=== PATIENT | male | born 1945 | race Caucasian/White ===

== ENCOUNTER 2023-03-15 21:04 | Emergency (ER) | payer MEDICARE, BC, SELFPAY ==
[2023-03-15 21:06] VITALS: BP 121/78
[2023-03-15 21:22] VITALS: BMI 34.5
[2023-03-15 21:24] VITALS: BP 135/63
--- NOTE | 2023-03-15 21:58 | ED.GENMED ---
History of Present Illness
<Enrrique Petersen DO - Last Filed: 03/16/23 06:43>
General
Chief Complaint: Weakness
Source: patient
Time Seen by Provider: 03/15/23 21:57
Travel History
Have you had any contact with someone who has COVID-19?: No
Do you have any symptoms of coronavirus? Fever > 100 degrees, chills, cough, shortness of breath, sore throat, loss of taste or smell, muscle aches, or headache?: No
<MARIANA Mayen - Last Filed: 03/16/23 00:27>
General
Exam Limitations: none
Nursing documentation reviewed up to this point in time: agreed with
History of Present Illness
History of Present Illness:
77 y/o M with past medical history of syncope, hypertension, HLD, heart stent in 2016 and RBBB presents to ED complaining of bilateral leg weakness x 4 hours. He reports the weakness came about suddenly while he was in his room after doing laundry.
He reports it is moderate in severity. He does report the weakness feels better now but reports it is still present. Patient has been nervous to walk due to fear of falling from leg weakness. He is also reporting associated lightheadedness and
numbness in feet that also began 4 hours ago. His reported he looked pale at home. He has not had leg weakness in the past but admits to feeling weak overall from his hospital stay. Patient was recently admitted to hospital for syncope. During
his stay, his blood pressure medication was adjusted to half a dose. He takes his blood pressure medication depending on his blood pressure readings. Patient also reports short after his hospital stay he had another episode of syncope that resulted
in him to urinate on himself. He denies weakness in his arms, headache, tingling, pain, speaking difficulty, memory loss, chest pain, diaphoresis, palpitations, or abdominal pain.
If applicable-neuro sx onset
Onset of symptoms known: Yes
Date of onset of symptoms: 03/15/23
Past History
<Enrrique Petersen DO - Last Filed: 03/16/23 06:43>
Past History
ED Past Medical History: HTN, Hypercholesterolemia and Other (Sleep apnea)
ED Past Surgical History: Cardiac
Social History
Tobacco: Non-smoker
Alcohol: None
Drug: None
Personal:
Living: with family
Review of Systems
<Enrrique Petersen DO - Last Filed: 03/16/23 06:43>
Review of Systems
Allergies reviewed?: Yes
<MARIANA Mayen - Last Filed: 03/16/23 00:27>
Review of Systems
All Other Systems: ROS reviewed and negative except as documented in HPI and ROS
Constitutional: Reports no symptoms
EENT: Reports no symptoms
Respiratory: Reports no symptoms
Cardiac: Reports syncope
ABD/GI: Reports no symptoms
: Reports incontinence
Musculoskeletal: Reports edema
Skin: Reports no symptoms
Neurological: Reports weakness and numbness
Endocrine: Reports no symptoms
Hematologic/Lymphatic: Reports no symptoms
Psychiatric: Reports no symptoms
<MARIANA Mayen - Last Filed: 03/16/23 00:27>
General Physical Exam
General Presentation: well appearing and no apparent distress
General age: appears stated age
General Skin: warm and pale
General Habitus: normal
General Mental: alert
General Hydration: appears well hydrated
ENT Exam
ENT Exam: EOMI and neck supple
Eye Exam
Eye Exam: PERRL, conjunctiva normal and visual acuity normal
Cardiovascular Exam
Cardiovascular Exam: regular rate/rhythm and other (2+ edema on BL legs)
Pulmonary Exam
Pulmonary Exam: lungs clear and no respiratory distress
Cough: no cough
Neurological Exam
Neurological Exam: alert, oriented x3, no motor deficits and speech normal
NIH Stroke Score
Level of Consciousness: 0 - Alert
Mental
Mental Status: oriented to person, oriented to place and oriented to time
Describe Speech: normal speech
Cranial
Cranial Nerves: no facial asymetry
Motor
Right lower extremity: 5
Left lower extremity: 5
Bilateral lower extremities: 5
Musculoskeletal Exam
Musculoskeletal Exam: edema, neuro vasc intact and other (5/5 strength in BL lower extremities and BL feet)
Skin Exam
Skin Exam: normal color and no rash
Course
<Enrrique Petersen, DO - Last Filed: 03/16/23 06:43>
Orders/Labs/Results
Orders:
Orders
03/15/23 23:26
Interrogate Pacemaker- Treatment ONCE
Comment: medtronic linq
03/15/23 23:29
EKG- Treatment ONCE
03/15/23 23:38
CRP [C-Reactive Protein] Urgent
Complete Blood Count/With Diff Urgent
Comprehensive Metabolic Panel Urgent
Lipase Urgent
NT-proBNP Urgent
PTT Urgent
Prothrombin Time Urgent
Sed Rate [Erythrocyte Sed Rate] Urgent
Troponin I Urgent
Urinalysis Reflex To Culture Urgent
Date Specimen was Collected: 03/15/23
Time Specimen was Collected: 22:59
03/16/23
Electrocardiogram (*1) Stat
Other Reason for Exam: VERTIGO
03/16/23 00:08
0.9% Sodium Chloride 500 ml [Nss] 500 ml IV BOLUS
03/16/23 00:39
Ambulate Patient-Treatment ONCE
Abnormal Lab Results
03/15/23
23:38
RBC 4.26 L 10^6/uL
(4.70-6.10)
Hgb 12.8 L g/dL
(13.0-18.0)
Hct 38.2 L %
(39.0-52.0)
Sodium 132 L mmol/L
(135-145)
BUN 22 H mg/dl
(9-20)
Glucose 101 H mg/dl
(70-99)
Total Protein 6.0 L g/dl
(6.3-8.2)
03/15/23 23:38
03/15/23 23:38
Vital Signs
Initial and Last Documented VS:
Initial Vital Signs
Temp Pulse Resp BP Pulse Ox
98.2 F 64 18 121/78 96
03/15/23 21:06 03/15/23 21:06 03/15/23 21:06 03/15/23 21:06 03/15/23 21:06
Last Documented Vital Signs
Temp Pulse Resp BP Pulse Ox
98.2 F 60 17 136/74 97
03/15/23 21:06 03/16/23 01:30 03/16/23 01:30 03/16/23 01:29 03/16/23 01:30
<MARIANA Mayen - Last Filed: 03/16/23 00:27>
Orders/Labs/Results
Orders:
Orders
03/15/23 23:26
Interrogate Pacemaker- Treatment ONCE
Comment: medtronic linq
03/15/23 23:29
EKG- Treatment ONCE
03/15/23 23:38
CRP [C-Reactive Protein] Urgent
Complete Blood Count/With Diff Urgent
Comprehensive Metabolic Panel Urgent
Lipase Urgent
NT-proBNP Urgent
PTT Urgent
Prothrombin Time Urgent
Sed Rate [Erythrocyte Sed Rate] Urgent
Troponin I Urgent
Urinalysis Reflex To Culture Urgent
Date Specimen was Collected: 03/15/23
Time Specimen was Collected: 22:59
03/16/23
Electrocardiogram (*1) Stat
Other Reason for Exam: VERTIGO
03/16/23 00:08
0.9% Sodium Chloride 500 ml [Nss] 500 ml IV BOLUS
03/16/23 00:39
Ambulate Patient-Treatment ONCE
Abnormal Lab Results
03/15/23
23:38
RBC 4.26 L 10^6/uL
(4.70-6.10)
Hgb 12.8 L g/dL
(13.0-18.0)
Hct 38.2 L %
(39.0-52.0)
Sodium 132 L mmol/L
(135-145)
BUN 22 H mg/dl
(9-20)
Glucose 101 H mg/dl
(70-99)
Total Protein 6.0 L g/dl
(6.3-8.2)
03/15/23 23:38
03/15/23 23:38
Vital Signs
Initial and Last Documented VS:
Initial Vital Signs
Temp Pulse Resp BP Pulse Ox
98.2 F 64 18 121/78 96
03/15/23 21:06 03/15/23 21:06 03/15/23 21:06 03/15/23 21:06 03/15/23 21:06
Last Documented Vital Signs
Temp Pulse Resp BP Pulse Ox
98.2 F 60 17 136/74 97
03/15/23 21:06 03/16/23 01:30 03/16/23 01:30 03/16/23 01:29 03/16/23 01:30
<Enrrique Petersen DO - Last Filed: 03/16/23 06:43>
*Critical Care Note
Total Time (30-74mins, 75-104mins- exclusive of procedures): Not Applicable
<Enrrique Petersen DO - Last Filed: 03/16/23 06:43>
Update Note
Update Note:
24:11 Patient well and stable. Vitals stable. No concerns reported
03/16/2023 0100 AM: Patient feeling better will ambulate.
03/16/2023 0146 AM: Linq recorder interrogated. It showed PVCs.
<ST TiarraPA - Last Filed: 03/16/23 00:27>
Update Note
Update Note:
24:11 Patient well and stable. Vitals stable. No concerns reported
ED Attending Note
<Enrrique Petersen DO - Last Filed: 03/16/23 06:43>
ED Attending Note
Patient seen and examined by attending physician: Yes
I performed the substantive portion of visit, reviewed & personally made and approve the management plan that is documented in note by myself or INOCENTE.: Yes
ED Attending Note:
Pleasant 77-year-old male presents with bilateral leg weakness for the last 4 hours. He states that this evening again on while standing doing laundry. He states that the pain lasted started to resolve. Patient was recently admitted to the "[facility] after syncopal event a few weeks ago and discharged. He states that he had a similar feeling of weakness at that point. He did report some lightheadedness tonight. Denies headache. Reports no chest pain or shortness of breath. Patient
states that his syncopal episode might have been due to to blood pressure medications. At his discharge, the medication dose was adjusted down. Patient was seen in conjunction with the PA student. I have reviewed and agree with the history and
treatment plan presented. On my independent physical exam, patient is awake, alert, and oriented x3, no acute distress. Heart is regular rate and rhythm. There is a Steri-Strip on his chest from where his Linq recorder was placed. Abdomen is
obese, nondistended. Bowel sounds x 4 quadrants. Good muscle strength in the lower extremities. Good distal pulses.
Vital signs are stable. Patient not hypoxic
Nursing note reviewed. I agree with nursing documentation up to this point in time.
Home Meds and allergies reviewed.
NUMBER AND COMPLEXITY OF PROBLEMS ADDRESSED AT THE ENCOUNTER
� Chronic conditions affecting care: Syncope, hypertension, hyperlipidemia, right bundle branch block, CAD
� Acute Exacerbation and/or Progression of Chronic Illness:
� Differential Diagnosis includes: Electrolyte abnormality, fatigue, cardiac event
AMOUNT AND/OR COMPLEXITY OF DATA TO BE REVIEWED AND ANALYZED
I performed an independent evaluation of the following and my interpretation is:
EKG:
CT:
X-rays:
Ultrasound:
Laboratory Studies:
Other:
Review of other/old records: Echocardiogram ejection fraction 60 to 65%, aortic sclerosis without stenosis.
Clinical information was obtained by an independent historian:
Prescriptions/Medications Considered but not given:
Further testing considered but not performed:
RISK OF COMPLICATIONS AND/OR MORBIDITY OR MORTALITY OF PATIENT MANAGEMENT
Social determinants of health affecting care: Good Social Support
Discussion with other providers:
Escalation of care including admission/observation vs risk of discharge considered:
CRITICAL CARE NOTE:
Total Time (exclusive of procedures):
Update:
-
Portions of this chart may have been created with voice recognition software.� Occasional wrong word or��sound alike� substitutions may have occurred due to the inherent limitations of voice recognition software.
Discharge Plan
Departure
Patient Disposition: Home (Routine Discharge)
Date of Disposition: 03/16/23
Time of Disposition: 01:12
Patient with high blood pressure during this ER visit?: Yes
Condition: Good
Discharge Problem:
Generalized weakness
Instructions: Generalized Weakness (DC), BLOOD PRESSURE
Prescriptions:
No Action
enalapril maleate 10 MG tablet
10 mg PO BID
terazosin 1 MG capsule
1 mg PO HS
aspirin 81 MG tablet,delayed release (DR/EC)
81 mg PO DAILY
calcium polycarbophil [Fiber-Tabs] 625 MG tablet
625 mg PO DAILY
ezetimibe 10 MG tablet
10 mg PO DAILY
rosuvastatin 5 mg Tablet
5 mg PO DAILY
hydrochlorothiazide 12.5 mg Tablet
12.5 mg PO DAILY
Centrum Silver Men [id number] mcg Tablet
1 tab PO DAILY
Referrals:
Raya Hahn MD [Family Provider] -
Activity Restrictions/Additional Instructions:
It was a pleasure meeting you and taking part in your care. We hope for your continued healing and wellness.
Please read discharge instructions in their entirety. However, they are for general education and may not describe your exact diagnosis at discharge. Information on your ER visit and medical conditions were discussed with you along with appropriate
follow up information...
If indicated, please take your medications as instructed and indicated on discharge paperwork.
Please schedule a follow up appointment as directed. Call to schedule an appointment
Please return to the emergency department with ANY change in, persisting, or worsening of symptoms. If any of your symptoms do not improve, or persist, or become more severe within 6-12 hours, please return to the emergency department for further
care.
Please return to the emergency department if you develop a headache, neck pain/stiffness, fever greater than 100.4F, chest pain, shortness of breath, persistent nausea, vomiting, slurred speech, difficulty walking, numbness/tingling, weakness, signs
of infection or any other symptoms that are worrisome to you.
If you have any questions or concerns please do not hesitate to call the Hospital at or E-mail me directly at [email or web address]
Interventions
Interventions:
*Risk Screen - Suicide Last Done: 03/15/23 21:06
*General Assessment Last Done: 03/15/23 21:06
*Neglect/Abuse Screening Last Done: 03/15/23 21:06
ED- Fall Risk Assessment Last Done: 03/15/23 21:06
*ED COVID-19 Vaccine History Last Done: 03/15/23 21:06
*Nursing Disposition Last Done: 03/16/23 01:40
ED- Cardiac Assessment Last Done: 03/15/23 23:43
ED- Neurological Assessment Last Done: 03/15/23 23:43
ED- Pulmonary Assessment Last Done: 03/15/23 23:43
Discharge Date and Time
Discharge Date/Time: 03/16/23 01:40
[2023-03-15 22:00] VITALS: BP 114/60
[2023-03-15 23:00] VITALS: BP 143/69
[2023-03-15 23:51] LABS: % Basophils 0.7 % (0-2); % Eosinophils 1.9 % (0-6); % Immature Granulocytes 0.4 % (0-0.5); % Lymphocytes 26.2 % (20.5-51.1); % Monocytes 7.3 % (1.7-9.3); % Neutrophils 63.5 % (42.2-75.2); Absolute Basophils 0.1 10^3/uL (0-0.2); Absolute Eosinophils 0.1 10^3/uL (0-0.7); Absolute Lymphocytes 1.9 10^3/uL (1.2-3.4); Absolute Monocytes 0.5 10^3/uL (0.1-0.6); Absolute Neutrophils 4.6 10^3/uL (1.4-6.5); Hematocrit 38.2 % (39.0-52.0); Hemoglobin 12.8 g/dL (13.0-18.0); Mean Corp Hgb Conc. 33.5 g/dL (33.0-37.0); Mean Corpuscular Volume 89.7 fL (80.0-94.0); Mean Platelet Volume 10.2 fL (7.4-10.4); Nucleated Red Blood Cells % 0 % (-); Platelet Count 250 10^3/uL (130-400); Red Blood Cell Count 4.26 10^6/uL (4.70-6.10); Red Cell Dist. Width 12.3 % (11.5-14.5); White Blood Cell Count 7.2 10^3/uL (4.8-10.8)
[2023-03-15 23:55] LABS: INR 1.11; PT 14.1 Sec (11.4-14.6)
[2023-03-15 23:56] LABS: APTT 29.4 Sec (23.4-35.0)
[2023-03-16] VITALS: BP 137/101
[2023-03-16] LABS: Urine Albumin Negative (Neg - Trace); Urine Bilirubin Negative (Negative); Urine Character Clear (Clear); Urine Color Yellow; Urine Glucose Negative (Negative); Urine Ketone Negative (Negative); Urine Leukocyte Negative (Negative); Urine Nitrite Negative (Negative); Urine Occult Blood Negative (Negative); Urine Specific Gravity 1.015 (<1.030); Urine Urobilinogen Negative (Neg - 1+)
[2023-03-16 00:02] LABS: ALT (SGPT) 17 U/L (0-50); AST (SGOT) 24 U/L (17-59); Albumin 3.9 g/dl (3.5-5.0); Alkaline Phosphatase 68 U/L (38-126); Blood Urea Nitrogen 22 mg/dl (9-20); Calcium 9.1 mg/dl (8.4-10.2); Carbon Dioxide 26 mmol/L (22-30); Chloride 102 mmol/L (98-107); Estimated Creatinine Clearance 80 ml/min; Glucose 101 mg/dl (70-99); Lipase 148 U/L (23-300); Potassium 4.3 mmol/L (3.5-5.1); Sodium 132 mmol/L (135-145); Total Bilirubin 0.5 mg/dl (0.2-1.3); eGFR > 60.00
[2023-03-16 00:11] LABS: C-Reactive Protein < 5.00 mg/L (0.0-10.00)
[2023-03-16 00:14] LABS: Erythrocyte Sed Rate 10 mm/hour (0-20); NT-proBNP 22.4 pg/ml; Troponin I < 0.012 ng/ml
[2023-03-16] MEDS: NSS 500 IV (00:15)
[2023-03-16 01:00] VITALS: BP 107/60
[2023-03-16 01:29] VITALS: BP 136/74
== END 2023-03-16 01:40 | disposition home or self-care (01) ==
LOC: EMR 21:04
PROVIDERS: EMERGENCY PHYSICIAN Student in an Organized Health Care Education/Training Program; FAMILY PHYSICIAN Emergency Medicine
DX: R53.1 Weakness (principal); I10 Essential (primary) hypertension; E78.00 Pure hypercholesterolemia, unspecified; I45.10 Unspecified right bundle-branch block; G47.30 Sleep apnea, unspecified; Z95.5 Presence of coronary angioplasty implant and graft
CPT/HCPCS: 99283; 96360; 80053; 81003; 83690; 83880; 84484; 85025; 85610; 85652; 85730; 86140; 93005

== ENCOUNTER → 2023-04-04 10:38 | Outpatient (REF) | payer MEDICARE, BC, SELFPAY ==
[2023-04-04 15:42] LABS: Blood Urea Nitrogen 22 mg/dl (9-20); Calcium 9.6 mg/dl (8.4-10.2); Carbon Dioxide 29 mmol/L (22-30); Chloride 104 mmol/L (98-107); Glucose 114 mg/dl (70-99); Potassium 4.2 mmol/L (3.5-5.1); Sodium 138 mmol/L (135-145); eGFR > 60.00
== END ==
LOC: HWLAB 10:38
PROVIDERS: ATTENDING PHYSICIAN Emergency Medicine
DX: E87.1 Hypo-osmolality and hyponatremia (principal)
CPT/HCPCS: 36415; 80048

== ENCOUNTER → 2023-04-12 11:29 | Outpatient (REF) | payer MEDICARE, BC, SELFPAY | LOC: DHCBC/DCA 11:29 | PROVIDERS: ATTENDING PHYSICIAN Nurse Practitioner; FAMILY PHYSICIAN Emergency Medicine | DX: R06.09 Other forms of dyspnea (principal) | CPT/HCPCS: 78452; 93017; A9500; J2785 ==

== ENCOUNTER → 2023-04-20 09:12 | Outpatient (REF) | payer MEDICARE, BC, SELFPAY ==
[2023-04-20 12:56] LABS: % Basophils 0.8 % (0-2); % Eosinophils 2.9 % (0-6); % Immature Granulocytes 0.2 % (0-0.5); % Lymphocytes 34.5 % (20.5-51.1); % Monocytes 7.5 % (1.7-9.3); % Neutrophils 54.1 % (42.2-75.2); Absolute Eosinophils 0.1 10^3/uL (0-0.7); Absolute Lymphocytes 1.7 10^3/uL (1.2-3.4); Absolute Monocytes 0.4 10^3/uL (0.1-0.6); Absolute Neutrophils 2.6 10^3/uL (1.4-6.5); Hematocrit 41.7 % (39.0-52.0); Hemoglobin 13.6 g/dL (13.0-18.0); Mean Corp Hgb Conc. 32.6 g/dL (33.0-37.0); Mean Corpuscular Hgb 29.6 pg (27.0-31.0); Mean Corpuscular Volume 90.7 fL (80.0-94.0); Mean Platelet Volume 11.1 fL (7.4-10.4); Nucleated Red Blood Cells % 0 % (-); Platelet Count 226 10^3/uL (130-400); Red Cell Dist. Width 12.4 % (11.5-14.5); White Blood Cell Count 4.8 10^3/uL (4.8-10.8)
[2023-04-20 13:03] LABS: ALT (SGPT) 22 U/L (0-50); AST (SGOT) 25 U/L (17-59); Albumin 4.1 g/dl (3.5-5.0); Alkaline Phosphatase 57 U/L (38-126); Blood Urea Nitrogen 28 mg/dl (9-20); Calcium 9.6 mg/dl (8.4-10.2); Carbon Dioxide 29 mmol/L (22-30); Chloride 100 mmol/L (98-107); Glucose 107 mg/dl (70-99); HDL Cholesterol 40 mg/dl; LDL Cholesterol, Calculated 53 mg/dl; Potassium 4.5 mmol/L (3.5-5.1); Sodium 138 mmol/L (135-145); Total Bilirubin 0.4 mg/dl (0.2-1.3); Total Cholesterol 115 mg/dl (50-199); Total Protein 6.3 g/dl (6.3-8.2); Triglyceride 111 mg/dl (10-149); Very Low Density Lipoprotein 22 mg/dl (0-30); eGFR > 60.00
== END ==
LOC: HWLAB 09:12
PROVIDERS: ATTENDING PHYSICIAN Emergency Medicine
DX: I10 Essential (primary) hypertension (principal); E78.2 Mixed hyperlipidemia; G47.33 Obstructive sleep apnea (adult) (pediatric); R73.03 Prediabetes
CPT/HCPCS: 36415; 80053; 80061; 83036; 85025

== ENCOUNTER 2023-05-17 06:04 | Day surgery (SDC) | payer MEDICARE, BC, SELFPAY ==
[2023-05-17] VITALS (13 sets, daily range): BP systolic 112–147; BP diastolic 56–75; BMI 34.0
[2023-05-17] MEDS: NSS 361 ML IV (07:03)
--- NOTE | 2023-05-17 08:18 | ITS.CL.CATH ---
Designer Writer - Catheterization
Cardiac Catheterization
Procedure Report:
CARDIAC CATHETERIZATION REPORT
Date of Procedure: 05/17/2023
Referring: Francisco Sheriff MD
Indication: Exertional dyspnea with ischemic stress test and prior history LAD PCI
HEMODYNAMIC DATA
AO: 124/64
LV: 124/17
LEFT VENTRICULOGRAPHY: Normal left ventricular wall motion with EF 54%
CORONARY ANGIOGRAPHY
Dominance: Right
Left Main: Normal
LAD: Widely patent proximal LAD stent with no restenosis. There is mild calcification of the mid LAD with only mild luminal irregularities in the LAD system
Circumflex: Trivial luminal irregularities
RCA: Large dominant vessel with mild luminal irregularities. The acute marginal branch becomes the PDA and has 30% ostial stenosis and diffuse distal disease
Closure Device: None-the procedure was performed via the right radial artery. The Kostas's test was normal prior to the procedure.
Radiation (mGy): 545
DAP (cm2.Gy): 46.8
Fluoroscopy time: 1.8 minutes
CONCLUSIONS
1: Normal left ventricular function with EF 54%
2: Mild CAD as described with patent proximal LAD stent
3. Continue medical therapy/risk factor modification efforts
Copy to: Francisco Sheriff MD, Raya Hahn MD
Royal Espinosa MD, [facility], [facility]
== END 2023-05-17 11:15 | disposition home or self-care (01) ==
LOC: CATH 06:04
PROVIDERS: ATTENDING PHYSICIAN Internal Medicine Cardiovascular Disease; FAMILY PHYSICIAN Emergency Medicine; OTHER PHYSICIAN Internal Medicine Cardiovascular Disease
DX: I25.10 Atherosclerotic heart disease of native coronary artery without angina pectoris (principal); R06.09 Other forms of dyspnea; Z95.5 Presence of coronary angioplasty implant and graft; I45.2 Bifascicular block; R55 Syncope and collapse; I10 Essential (primary) hypertension; Z79.82 Long term (current) use of aspirin
CPT/HCPCS: 93005; 93458; C1894; Q9967

== ENCOUNTER → 2023-05-27 07:34 | Outpatient (REF) | payer MEDICARE, BC, SELFPAY | LOC: PAVMRI 07:34 | PROVIDERS: ATTENDING PHYSICIAN Emergency Medicine | DX: K11.7 Disturbances of salivary secretion (principal); R29.810 Facial weakness | CPT/HCPCS: 70553; A9575 ==

== ENCOUNTER → 2023-06-12 13:04 | Outpatient (REF) | payer MEDICARE, BC, SELFPAY | LOC: MRI 3T 13:04 | PROVIDERS: ATTENDING PHYSICIAN Emergency Medicine | DX: R29.6 Repeated falls (principal) | CPT/HCPCS: 70544; 72141 ==

== ENCOUNTER → 2023-06-13 07:39 | Outpatient (REF) | payer MEDICARE, BC, SELFPAY | LOC: PAVMRI 07:39 | PROVIDERS: ATTENDING PHYSICIAN Psychiatry & Neurology Neurology; FAMILY PHYSICIAN Emergency Medicine | DX: I63.89 Other cerebral infarction (principal) | CPT/HCPCS: 70549; A9585 ==

== ENCOUNTER 2023-06-21 08:41 | Emergency (ER) | payer MEDICARE, BC, SELFPAY ==
[2023-06-21 08:42] VITALS: BMI 34.0
[2023-06-21 08:48] VITALS: BP 147/113
--- NOTE | 2023-06-21 09:11 | ED.GENMED ---
History of Present Illness
General
Chief Complaint: Bowel Problem
Source: patient
Exam Limitations: none
Time Seen by Provider: 06/21/23 08:45
Nursing documentation reviewed up to this point in time: agreed with
Travel History
Have you had any contact with someone who has COVID-19?: No
Do you have any symptoms of coronavirus? Fever > 100 degrees, chills, cough, shortness of breath, sore throat, loss of taste or smell, muscle aches, or headache?: No
History of Present Illness
History of Present Illness:
pt is a 77 y/o h/o htn, BPH
here with constipation x 4 days
usually has a bm every day or every other day and says he has had small amount sof stool and the pressure to defecate
this morning at 4 am he tried and did move his bowels a little and urinate. he usually urinates every few hours and then the next time he got up around 6 am, he tried to void and he couldn't pass stool or urine.
he has no abdominal pain, fever, vomiting, bleeding, dysuria
he did move his bowels slightly and urinate normally here
he doesn't have h/o severe cosntipation
has some rectal pain now and thnks his hemorrhoid is prolasped.
Past History
Past History
ED Past Medical History: HTN, Hypercholesterolemia and Other (Sleep apnea)
ED Past Surgical History: Cardiac
Social History
Tobacco: Non-smoker
Alcohol: None
Drug: None
Personal:
Living: with family
Review of Systems
Review of Systems
Allergies reviewed?: Yes
All Other Systems: Not applicable
Phy Exam
Physical Exam
Physical Exam:
GENERAL: Alert , in no apparent distress
EYE: pupils equal and reactive
NECK: Supple
ENT: o/p clr, mmm.
CARDIAC: Regular rate and rhythm .
LUNGS: Clear breath sounds bilaterally, no acute respiratory distress, no wheezes/rales/rhonchi
ABDOMEN: Soft, obese without focal tenderness, no r/g, no cvat, normal bowel sounds
Rectal, small external nonbleeding nonthrombosed hemorrhoids, fecal impaction, light brown stool
NEUROLOGICAL: Alert and oriented, no focal neuro deficits
SKIN: Warm and dry, skin intact.
MUSCULOSKELETAL: No edema, well perfused. neg nerissa's sign
PSYCH: Normal and appropriate interaction.
Course
Orders/Labs/Results
Orders:
Orders
06/21/23 09:07
Enema- Treatment ONCE
Type: Milk of Molasses
Obstruct Series W/PA Chest [CR Obstruct Series W/pa Chest] Urgent
Comment:
Reason For Exam: constipation
06/21/23 09:11
Complete Blood Count/With Diff Urgent
Comprehensive Metabolic Panel Urgent
Abnormal Lab Results
06/21/23
09:11
Neutrophils % 75.3 H %
(42.2-75.2)
Lymphocytes % 16.6 L %
(20.5-51.1)
BUN 23 H mg/dl
(9-20)
Glucose 111 H mg/dl
(70-99)
06/21/23 09:11
06/21/23 09:11
Vital Signs
Initial and Last Documented VS:
Initial Vital Signs
Temp Pulse Resp BP Pulse Ox
98.6 F 77 16 147/113 97
06/21/23 08:48 06/21/23 08:48 06/21/23 08:48 06/21/23 08:48 06/21/23 08:48
Last Documented Vital Signs
Temp Pulse Resp BP Pulse Ox
98.6 F 89 16 146/69 97
06/21/23 08:48 06/21/23 10:12 06/21/23 10:12 06/21/23 10:12 06/21/23 10:12
MDM/Problems Addressed
Differential Diagnosis Includes:
Constipation, urinary retention, obstruction
MDM/Problems Addressed:
77-year-old male with history of hypertension, hyperlipidemia presents for constipation over the last 4 days. He has not had a good bowel movement in that timeframe. He has been able to defecate somewhat but is difficult and small amounts. This
morning at 4 AM he was able to urinate completely and moved his bowels somewhat. About 2 hours later when he would normally urinate he was unable to do so. He feels the urge and some rectal pressure. He is not having any nausea, vomiting,
abdominal pain. He is not on any chronic opiates. His stool is light brown. On exam the patient has obese abdomen which is soft and nontender. He has a nonbleeding nonthrombosed external hemorrhoid. He did not tolerate disimpaction very well,
he does have stool in his vault that is soft and I was able to remove a few small pieces but patient did tolerate the enema well and moved his bowels. He feels much better. He was able to urinate normally twice here too.
MiraLAX once or twice a day for the next 2 to 3 days. Stool softeners. More water intake
Appreciate the x-ray independently reviewed by me, patient does have stool in his colon and a paucity of bowel gas but no symptoms of a bowel obstruction, not vomiting.
*Critical Care Note
Total Time (30-74mins, 75-104mins- exclusive of procedures): Not Applicable
ED Attending Note
-
Portions of this chart may have been created with voice recognition software.� Occasional wrong word or��sound alike� substitutions may have occurred due to the inherent limitations of voice recognition software.
Discharge Plan
Departure
Patient Disposition: Home (Routine Discharge)
Date of Disposition: 06/21/23
Time of Disposition: 10:41
Patient with high blood pressure during this ER visit?: Yes
Condition: Fair
Discharge Problem:
Acute constipation
Instructions: Constipation, Adult (DC), BLOOD PRESSURE
Prescriptions:
No Action
enalapril maleate 10 MG tablet
5 mg PO BID PRN (Reason: bp above 110/70)
terazosin 1 MG capsule
1 mg PO HS
aspirin 81 MG tablet,delayed release (DR/EC)
81 mg PO DAILY
Fiber-Tabs 625 MG tablet
625 mg PO DAILY
ezetimibe 10 MG tablet
10 mg PO DAILY
rosuvastatin 5 mg Tablet
5 mg PO DAILY
hydrochlorothiazide 12.5 mg Tablet
12.5 mg PO DAILY PRN (Reason: swelling)
Centrum Silver Men [id number] mcg Tablet
1 tab PO DAILY
clindamycin HCl 150 mg Capsule
150 mg PO ONCE PRN (Reason: prior to dental )
tacrolimus 0.1 % Ointment
1 applic TOPICAL BID PRN (Reason: rosacea)
albuterol 90 mcg/actuation Aerosol
90 mcg INHALATION Q4H PRN (Reason: shortness of breath)
minocycline 50 mg Tablet
50 mg PO DAILY PRN (Reason: rosacea)
Referrals:
Raya Hahn MD [Family Provider] - Follow up in 5-7 days
Activity Restrictions/Additional Instructions:
You were given an enema today for your constipation. You have a small hemorrhoid which you can treat with external topical Preparation H cream and use a sitz bath couple of times a day until healed. To help continue to move your bowels you can use
MiraLAX once or twice a day 1 capful in 8 ounces of water or juice for the next 1 to 3 days.
To soften your stools routinely you should use Metamucil or Colace. These are [id number].
Return for severe worsening symptoms like abdominal swelling, inability to pass gas, vomiting, fever or chills, severe pain or any concerns
Interventions
Interventions:
*Risk Screen - Suicide Last Done: 06/21/23 08:50
*General Assessment Last Done: 06/21/23 08:49
*Neglect/Abuse Screening Last Done: 06/21/23 08:50
ED- Fall Risk Assessment Last Done: 06/21/23 08:51
*ED COVID-19 Vaccine History Last Done: 06/21/23 08:49
TK-Dxdzod-Hvvrykczdy Assessment Last Done: 06/21/23 08:50
Discharge Date and Time
Print Language: CZECH
[2023-06-21 09:28] LABS: % Basophils 0.5 % (0-2); % Eosinophils 1.1 % (0-6); % Immature Granulocytes 0.4 % (0-0.5); % Lymphocytes 16.6 % (20.5-51.1); % Monocytes 6.1 % (1.7-9.3); % Neutrophils 75.3 % (42.2-75.2); Absolute Eosinophils 0.1 10^3/uL (0-0.7); Absolute Lymphocytes 1.2 10^3/uL (1.2-3.4); Absolute Monocytes 0.5 10^3/uL (0.1-0.6); Absolute Neutrophils 5.5 10^3/uL (1.4-6.5); Hematocrit 43.9 % (39.0-52.0); Hemoglobin 14.7 g/dL (13.0-18.0); Mean Corp Hgb Conc. 33.5 g/dL (33.0-37.0); Mean Corpuscular Volume 89.6 fL (80.0-94.0); Mean Platelet Volume 10.1 fL (7.4-10.4); Nucleated Red Blood Cells % 0 % (-); Platelet Count 249 10^3/uL (130-400); Red Cell Dist. Width 12.8 % (11.5-14.5); White Blood Cell Count 7.4 10^3/uL (4.8-10.8)
[2023-06-21 09:43] LABS: ALT (SGPT) 23 U/L (0-50); AST (SGOT) 27 U/L (17-59); Albumin 4.4 g/dl (3.5-5.0); Alkaline Phosphatase 55 U/L (38-126); Blood Urea Nitrogen 23 mg/dl (9-20); Calcium 9.5 mg/dl (8.4-10.2); Carbon Dioxide 26 mmol/L (22-30); Chloride 104 mmol/L (98-107); Estimated Creatinine Clearance 88 ml/min; Glucose 111 mg/dl (70-99); Potassium 4.7 mmol/L (3.5-5.1); Sodium 138 mmol/L (135-145); Total Bilirubin 0.6 mg/dl (0.2-1.3); Total Protein 6.7 g/dl (6.3-8.2); eGFR > 60.00
[2023-06-21 10:12] VITALS: BP 146/69
[2023-06-21 11:37] VITALS: BP 158/86
== END 2023-06-21 11:37 | disposition home or self-care (01) ==
LOC: EMR 08:41
PROVIDERS: Physician Assistant; EMERGENCY PHYSICIAN Emergency Medicine; FAMILY PHYSICIAN Emergency Medicine
DX: K59.00 Constipation, unspecified (principal); I10 Essential (primary) hypertension; N40.0 Benign prostatic hyperplasia without lower urinary tract symptoms
CPT/HCPCS: 99283; 74022; 80053; 85025

== ENCOUNTER → 2023-08-19 09:12 | Outpatient (REF) | payer MEDICARE, BC, SELFPAY ==
[2023-08-19 11:51] LABS: % Basophils 0.6 % (0-2); % Eosinophils 2.7 % (0-6); % Immature Granulocytes 0.4 % (0-0.5); % Lymphocytes 29.1 % (20.5-51.1); % Monocytes 7.2 % (1.7-9.3); Absolute Eosinophils 0.1 10^3/uL (0-0.7); Absolute Lymphocytes 1.5 10^3/uL (1.2-3.4); Absolute Monocytes 0.4 10^3/uL (0.1-0.6); Absolute Neutrophils 3.1 10^3/uL (1.4-6.5); Hematocrit 40.6 % (39.0-52.0); Mean Corp Hgb Conc. 34.5 g/dL (33.0-37.0); Mean Corpuscular Hgb 31.3 pg (27.0-31.0); Mean Corpuscular Volume 90.6 fL (80.0-94.0); Mean Platelet Volume 10.5 fL (7.4-10.4); Nucleated Red Blood Cells % 0 % (-); Platelet Count 233 10^3/uL (130-400); Red Blood Cell Count 4.48 10^6/uL (4.70-6.10); Red Cell Dist. Width 12.8 % (11.5-14.5); White Blood Cell Count 5.2 10^3/uL (4.8-10.8)
[2023-08-19 12:06] LABS: ALT (SGPT) 23 U/L (0-50); AST (SGOT) 27 U/L (17-59); Albumin 4.3 g/dl (3.5-5.0); Alkaline Phosphatase 53 U/L (38-126); Blood Urea Nitrogen 24 mg/dl (9-20); Calcium 9.3 mg/dl (8.4-10.2); Carbon Dioxide 27 mmol/L (22-30); Chloride 105 mmol/L (98-107); Glucose 101 mg/dl (70-99); Glycohemoglobin (HgbA1c) 5.8 % (4.0-5.6); Potassium 4.8 mmol/L (3.5-5.1); Sodium 138 mmol/L (135-145); Total Bilirubin 0.6 mg/dl (0.2-1.3); Total Protein 6.3 g/dl (6.3-8.2); eGFR > 60.00
== END ==
LOC: HWLAB 09:12
PROVIDERS: ATTENDING PHYSICIAN Emergency Medicine
DX: I10 Essential (primary) hypertension (principal); E78.2 Mixed hyperlipidemia; R73.03 Prediabetes
CPT/HCPCS: 36415; 80053; 83036; 85025

== ENCOUNTER → 2024-01-02 13:51 | Outpatient (REF) | payer MEDICARE, BC, SELFPAY | LOC: HWRCS 13:51 | PROVIDERS: ATTENDING PHYSICIAN Internal Medicine Cardiovascular Disease; FAMILY PHYSICIAN Emergency Medicine | DX: Z95.818 Presence of other cardiac implants and grafts (principal); I25.10 Atherosclerotic heart disease of native coronary artery without angina pectoris; I10 Essential (primary) hypertension; R06.09 Other forms of dyspnea; R01.1 Cardiac murmur, unspecified | CPT/HCPCS: 93306 ==

== ENCOUNTER → 2024-01-11 09:27 | Outpatient (REF) | payer MEDICARE, BC, SELFPAY ==
[2024-01-11 12:20] LABS: ALT (SGPT) 27 U/L (0-50); AST (SGOT) 23 U/L (17-59); Albumin 4.2 g/dl (3.5-5.0); Alkaline Phosphatase 45 U/L (38-126); Blood Urea Nitrogen 26 mg/dl (9-20); Calcium 9.1 mg/dl (8.4-10.2); Carbon Dioxide 30 mmol/L (22-30); Chloride 100 mmol/L (98-107); Glucose 103 mg/dl (70-99); Potassium 4.8 mmol/L (3.5-5.1); Sodium 140 mmol/L (135-145); Total Bilirubin 0.5 mg/dl (0.2-1.3); Total Protein 6.5 g/dl (6.3-8.2); eGFR > 60.00
[2024-01-11 12:23] LABS: % Basophils 0.6 % (0-2); % Immature Granulocytes 0.1 % (0-0.5); % Lymphocytes 18.6 % (20.5-51.1); % Monocytes 4.8 % (1.7-9.3); % Neutrophils 74.9 % (42.2-75.2); Absolute Basophils 0.1 10^3/uL (0-0.2); Absolute Eosinophils 0.1 10^3/uL (0-0.7); Absolute Lymphocytes 1.4 10^3/uL (1.2-3.4); Absolute Monocytes 0.4 10^3/uL (0.1-0.6); Absolute Neutrophils 5.8 10^3/uL (1.4-6.5); Hematocrit 43.8 % (39.0-52.0); Mean Corpuscular Hgb 30.2 pg (27.0-31.0); Mean Corpuscular Volume 94.6 fL (80.0-94.0); Mean Platelet Volume 10.9 fL (7.4-10.4); Nucleated Red Blood Cells % 0 % (-); Platelet Count 203 10^3/uL (130-400); Red Blood Cell Count 4.63 10^6/uL (4.70-6.10); Red Cell Dist. Width 12.7 % (11.5-14.5); White Blood Cell Count 7.7 10^3/uL (4.8-10.8)
[2024-01-12 08:38] LABS: Glycohemoglobin (HgbA1c) 5.9 % (4.0-5.6)
== END ==
LOC: HWLAB 09:27
PROVIDERS: ATTENDING PHYSICIAN Emergency Medicine
DX: I10 Essential (primary) hypertension (principal); I25.10 Atherosclerotic heart disease of native coronary artery without angina pectoris; R73.03 Prediabetes
CPT/HCPCS: 36415; 80053; 83036; 85025

== ENCOUNTER 2024-01-17 06:29 | Day surgery (SDC) | payer MEDICARE, BC, SELFPAY ==
[2024-01-17 13:40] VITALS: BMI 34.0
[2024-01-17 13:45] VITALS: BP 155/72
[2024-01-17 13:51] VITALS: BMI 34.0
[2024-01-17 15:02] VITALS: BP 129/68
[2024-01-17 15:15] VITALS: BP 124/76
[2024-01-17 15:30] VITALS: BP 133/69
== END 2024-01-17 15:47 | disposition home or self-care (01) ==
LOC: SDS 06:29
PROVIDERS: ATTENDING PHYSICIAN Surgery
PROC: 0DJD8ZZ Inspection of Lower Intestinal Tract, Via Natural or Artificial Opening Endoscopic (ICD-10-PCS; 2024-01-17)
DX: Z12.11 Encounter for screening for malignant neoplasm of colon (principal); Z86.0100 Personal history of colon polyps, unspecified; K64.8 Other hemorrhoids; K57.30 Diverticulosis of large intestine without perforation or abscess without bleeding; K64.4 Residual hemorrhoidal skin tags
CPT/HCPCS: G0105

== ENCOUNTER → 2024-01-25 08:59 | Outpatient (REF) | payer MEDICARE, BC, SELFPAY ==
[2024-01-25 12:36] LABS: Iron 101 ug/dl (49-181)
[2024-01-25 12:45] LABS: Percent Saturation 34 % (20-50); Total Iron Binding Capacity 293 ug/dl (261-462)
[2024-01-25 12:53] LABS: Vitamin D, 25-OH*** 34.4 ng/mL (30-80)
[2024-01-25 13:06] LABS: TSH Reflex To Free T4 0.54 uIU/ml (0.47-4.68)
[2024-01-25 13:10] LABS: Ferritin 75.1 ng/ml (17.9-464.0)
[2024-01-25 15:35] LABS: Vitamin B12 498 pg/ml (239-931)
== END ==
LOC: HWLAB 08:59
PROVIDERS: ATTENDING PHYSICIAN Emergency Medicine
DX: R53.83 Other fatigue (principal); I25.10 Atherosclerotic heart disease of native coronary artery without angina pectoris; R73.03 Prediabetes; I45.2 Bifascicular block; R26.81 Unsteadiness on feet; Z79.899 Other long term (current) drug therapy
CPT/HCPCS: 36415; 82306; 82607; 82728; 83540; 83550; 84443

== ENCOUNTER 2024-04-30 11:45 | Inpatient (IN) | payer MEDICARE, BC, SELFPAY ==
[2024-04-30] VITALS (13 sets, daily range): BP systolic 104–148; BP diastolic 62–93; BMI 34.8
--- NOTE | 2024-04-30 11:57 | HPS.HSE ---
Addendum entered and electronically signed by Imtiaz Roe MD 04/30/24 16:39:
I saw and examined the patient this morning prior to pacemaker implant. The decision to proceed to pacemaker was made with the completion of this evaluation this morning.
The FILE DRAWER FINISHER's note was reviewed and I agree with the note.
Comment: Strips from his syncopal event this weekend confirm symptomatic complete heart block that is paroxysmal He has a class I (prior terminology) or he is 'appropriate' for permanent pacemaker.
Original Note:
Family Physician
-
Family Physician: Raya Hahn MD
Chief Complaint
-
syncope
History of Present Illness
Mr. Lawson is a 78 yo male with CAD LAD PCI 2016, HTN, HLD, bifascicular block, syncope s/p ILR, obsesity, and CVA, who is here for syncope. He had syncope last night at 9pm, his ILR recorded a 5 second pause and strips reveal paroxysmal complete
heart block. He will be admitted for a pacemaker later today.
Medical History
Past Medical History
Past Medical History: Reports Other (as above)
Past Surgical History: Reports Orthopedic (R TKA 12/2011, L TKA 06/2012)
Social History
Tobacco: Non-smoker
Alcohol: None
Personal:
Living: With Family ()
Family History
Family History: Not pertinent
Allergies / Home Medications
Allergies reflects when Allergies were last updated in [facility].
Home Medications with original date entered in [facility]
Allergy/Medication List:
Allergies: latex, statins, strawberries, Penicillins.
Review of Systems
-
History Source: Patient
A 12 point ROS was completed and negative except as noted: Yes
Physical Exam
Vital Signs
Vital Signs
Temp Pulse Resp BP Pulse Ox
98.5 F 56 20 139/68 96
04/30/24 11:24 04/30/24 11:24 04/30/24 11:24 04/30/24 11:24 04/30/24 11:24
Physical Exam
General: Well Developed, Well Nourished and No Apparent Distress
HEENT: NormoCephalic, Anicteric and Moist mucous membranes
Respiratory: Clear and Non Labored Respirations
Cardiac: S1/S2 and Regular Rhythm
Breast: Deferred by me
GI: Soft, Non Tender, Non Distended and Normal Bowel Sounds
Rectal: Deferred by Provider
Genito-urinary: Deferred by me
Musculoskeletal: No Cyanosis and No Edema
Skin: Warm and Dry
Neuro: AO x 3
Hematologic/Lymphatic: No Lymphadenopathy
Psych: Calm
Laboratory Results
-
labs drawn in ER, awaiting results.
Data Reviewed
-
Medical Tests (Nuc Med, Echo, EKG etc): Image Personally Visualized and interpreted (EKG: SR with premature supraventricular complexes, 61 bpm, bifascicular block), Report Reviewed by me (echo 01/04/2024: normal LVEF, aortic sclerosis w/o stenosis.)
and Other (cath 05/17/2023: EF 54%, widely patent LAD stent, LCx and RCA with luminal irregularities, PDA 30% ostial stenosis.)
Lab Data: Labs Reviewed by me
Old Records: Reviewed
Impression/Plan
-
IMPRESSION/PLAN:
Syncope - last night 9pm.
- 5 second pause noted on ILR monitor.
- paroxysmal complete heart block noted on ILR strips reviewed.
- plan for admission and pacemaker today, he is agreeable.
- monitor on tele.
- will explant ILR at the time of pacemaker implant.
- NPO.
- echo 01/04/2024: normal LVEF, aortic sclerosis w/o stenosis.
Bifascicular block - chronic.
- plan for pacemaker as above.
HTN - stable on medical therapy, continue.
CAD - stable w/o angina.
- prior LAD PCI 2016.
- continue medical therapy.
CVA - noted on recent MRI.
- monitoring for Afib with ILR.
- plan as above.
- continue ASA, Crestor, Zetia.
--- NOTE | 2024-04-30 12:06 | ED.GENMED ---
History of Present Illness
General
Chief Complaint: Fainting/Passed Out
Source: patient and physician
Time Seen by Provider: 04/30/24 11:39
History of Present Illness
History of Present Illness:
78-year-old male with past medical history of hypertension, hyperlipidemia, coronary artery disease status post cardiac stent presenting to the ER at the request of cardiology who stated patient had a syncopal episode last night and was noted on his
loop recorder to go into a bradycardic episode. Patient was sent to the emergency department for ultimate placement of a pacemaker. Patient is without any this time although admits to some generalized anxiousness over the procedure.
Past History
Past History
ED Past Medical History: CAD, HTN, Hypercholesterolemia and Other (Sleep apnea)
ED Past Surgical History: Cardiac and Orthopedic
Social History
Tobacco: Non-smoker
Alcohol: None
Drug: None
Personal:
Living: with family
Review of Systems
Review of Systems
All Other Systems: ROS reviewed and negative except as documented in HPI and ROS
Phy Exam
Physical Exam
Physical Exam:
GENERAL: Alert , in no apparent distress, overweight
EYE: conjunctiva clear
NECK: Supple
ENT: o/p clr, mmm.
CARDIAC: Regular rate and rhythm
LUNGS: Clear breath sounds bilaterally, no acute respiratory distress, no wheezes/rales/rhonchi
NEUROLOGICAL: Alert and oriented
SKIN: Warm and dry, skin intact.
MUSCULOSKELETAL: well perfused.
PSYCH: Normal and appropriate interaction.
Scores
Heart Failure Risk
Heart Failure Risk Score: Not Applicable
Heart Score for Chest Pain Patients
STEMI patient?: Not applicable
Withdrawal Assessment of Alcohol
Withdrawal Assessment Completed?: Not applicable
Course
Orders/Labs/Results
Orders:
Orders
04/30/24 Breakfast
NPO
Allow oral meds: Yes
Allow clear liquids: No
NPO with Ice Chips: No
04/30/24 11:19
Electrocardiogram (*1) Urgent
Reason for Study: Syncope
EKG- Treatment ONCE
04/30/24 11:26
Admit/Transfer Patient As Directed
Co-Sign Provider:
Level of Care: Inpatient admission
Assign to:: IVU
Physician / Group: CBC
Diagnosis: Heart block
Reason for Hospitalization: Syncope with heart block
Expected length of stay greater than two midnights?: Yes
ELOS- Estimated Length of Stay in days: 3
I certify the patient meets the requirements for IP care: Yes
PRN Pain Medication Management As Directed
May give lesser potent ordered pain med per pt: Yes
preference::
Protocol:: Medication orders for pain may be administered in a
manner that supports deferring to patient preference
when the pt is:
- Requesting an ordered lesser potent pain medication.
Least to most potent pain medications are defined
as: acetaminophen < NSAID < tramadol < opioids
(morphine, oxycodone, hydromorphone).
- Requesting a lesser dose of the same medication IF
ORDERED.
- Requesting a less intrusive route of administration
if both routes are prescribed by the provider (PO <
IV).
04/30/24 11:29
INT (Intravenous Needle Therapy) As Directed
Comment: #20 gauge IV catheter
Notify MD As Directed
Notify physician if: no consent on chart
Surgical Procedure As Directed
Surgical Procedure: PPM
Vital Signs
Initial and Last Documented VS:
Initial Vital Signs
Temp Pulse Resp BP Pulse Ox
98.5 F 56 20 139/68 96
04/30/24 11:24 04/30/24 11:24 04/30/24 11:24 04/30/24 11:24 04/30/24 11:24
Last Documented Vital Signs
Temp Pulse Resp BP Pulse Ox
98.5 F 59 20 104/68 96
04/30/24 11:24 04/30/24 13:30 04/30/24 13:30 04/30/24 13:11 04/30/24 11:24
MDM/Problems Addressed
Differential Diagnosis Includes:
heart block, tachy-slick syndrome, brugada, WPW, electrolyte derangement
MDM/Problems Addressed:
78-year-old male presenting to the ER for evaluation and ultimately admission for pacemaker placement due to syncopal episode/recurring syncope, found to be bradycardic at time of his syncopal event. Asymptomatic presently. Cardiology already in
the emergency department. They will admit the patient to their service. Plan for pacemaker at 3 PM today. Patient to remain in the ER on telemetry.
*Pulse Oximetry
Patient hypoxic: no
*EKG
Interpreted by ED Provider?: Yes
Heart Rate: 61
Rate: normal
Rhythm: sinus
QRS Pattern: left bundle branch block and right bundle branch block
*Director Business Intelligence Interpretation
Rate: normal
Rhythm: sinus
*Critical Care Note
Total Time (30-74mins, 75-104mins- exclusive of procedures): Not Applicable
Patient Management
Discussion with other providers: Boat Oar Maker
ED Attending Note
-
Portions of this chart may have been created with voice recognition software.� Occasional wrong word or��sound alike� substitutions may have occurred due to the inherent limitations of voice recognition software.
Discharge Plan
Interventions
Interventions:
*Risk Screen - Suicide Last Done: 04/30/24 11:24
*General Assessment Last Done: 04/30/24 11:24
*Neglect/Abuse Screening Last Done: 04/30/24 11:24
*ED- Fall Risk Assessment Last Done: 04/30/24 12:14
*ED COVID-19 Vaccine History Last Done: 04/30/24 12:14
ED- Cardiac Assessment Last Done: 04/30/24 12:14
ED- Neurological Assessment Last Done: 04/30/24 12:14
[2024-04-30 12:26] LABS: % Basophils 0.6 % (0-2); % Eosinophils 2.2 % (0-6); % Immature Granulocytes 0.3 % (0-0.5); % Monocytes 6.6 % (1.7-9.3); % Neutrophils 73.3 % (42.2-75.2); Absolute Eosinophils 0.2 10^3/uL (0-0.7); Absolute Lymphocytes 1.2 10^3/uL (1.2-3.4); Absolute Monocytes 0.5 10^3/uL (0.1-0.6); Absolute Neutrophils 5.1 10^3/uL (1.4-6.5); Hemoglobin 13.5 g/dL (13.0-18.0); Mean Corp Hgb Conc. 32.9 g/dL (33.0-37.0); Mean Corpuscular Hgb 29.7 pg (27.0-31.0); Mean Corpuscular Volume 90.1 fL (80.0-94.0); Mean Platelet Volume 10.2 fL (7.4-10.4); Nucleated Red Blood Cells % 0 % (-); Platelet Count 208 10^3/uL (130-400); Red Blood Cell Count 4.55 10^6/uL (4.70-6.10); Red Cell Dist. Width 12.4 % (11.5-14.5)
[2024-04-30 12:55] LABS: ALT (SGPT) 22 U/L (0-50); AST (SGOT) 20 U/L (17-59); Albumin 4.3 g/dl (3.5-5.0); Alkaline Phosphatase 65 U/L (38-126); Blood Urea Nitrogen 17 mg/dl (9-20); Calcium 9.4 mg/dl (8.4-10.2); Carbon Dioxide 28 mmol/L (22-30); Chloride 104 mmol/L (98-107); Estimated Creatinine Clearance 97 ml/min; Glucose 102 mg/dl (70-99); Potassium 4.5 mmol/L (3.5-5.1); Sodium 139 mmol/L (135-145); Total Bilirubin 0.7 mg/dl (0.2-1.3); Total Protein 6.2 g/dl (6.3-8.2); eGFR > 60.00
--- NOTE | 2024-04-30 16:11 | ITS.CL.PACE ---
Community Worker - Pacemaker Implant
Pacemaker Implant
Procedure Report:
Dual Chamber Pacemaker Placement:
Mr. Lawson is a very pleasant 78 yrs old gentleman with h/o CAD LAD PCI 2016, HTN, HLD, obsesity, and CVA, bifascicular block, syncope s/p ILR, recorded a 5 second pause and strips reveal paroxysmal complete heart block is left handed and prefers
right sided device who is recommended for PPM placement.�
Indications: Syncope with paroxysmal complete heart block
Date of the Procedure: 04/30/24
Pre-Operative Diagnosis: Syncope with paroxysmal complete heart block
Post-Operative Diagnosis: Syncope with paroxysmal complete heart block
Procedure Performed: DUAL CHAMBER PACEMAKER IMPLANTATION and ILR REMOVAL
Performing Physician:
Jose Ramon Chairez MD
Anesthesia:
See anesthesia records
Pre-operative antibiotics:
Ancef
Detailed Description of the Procedure:
The patient was identified using hospital identification and informed consent obtained for the procedure. The risks were explained including, but not limited to: Bleeding, infection, arrhythmia, stroke, vascular/cardiac/lung puncture, surgery,
pacemaker dependency/device malfunction. All questions were answered.
The patient was brought to the electrophysiology laboratory in stable condition in fasting state. Continuous electrocardiographic and hemodynamic monitoring was initiated. The initial rhythm was normal sinus.
The procedure site was meticulously prepared with surgical scrub and allowed to dry with no pooling. Sterile draping was applied to cover the procedure site. The image intensifier was draped with sterile bag and positioned over the patient.
A surgical pause and time out was performed immediately prior to the procedure with review of her medical history, recent labs, allergies and medications with site of procedure identified and consent noted in the chart. Antibiotics pre operatively
given. All team members concurred.
The right infraclavicular region was prepped and draped in the usual sterile fashion. Local anesthesia was administered subcutaneously using 1% lidocaine / Bupivacaine. The right cephalic vein cutdown was performed with an incision at the
delto-pectoral groove, and vascular sheaths were introduced for lead access. These were advanced into the right ventricle and the right atrium. The right ventricular lead was secured in position with an active fixation technique at the septal
location. The RA lead was attached in the right atrial appendage with active fixation. There was excellent sensing, pacing, and impedance from the leads, with no diaphragmatic stimulation at 10 V output.�Bovie cautery, antibiotics, and fluoroscopy
were used.
The sheaths were withdrawn, and the thresholds remained acceptable. The leads were secured in position at the venous entry site with 2-0 Ethibond. A pocket was fashioned contiguous to the incision. The electrode terminals were connected to the pulse
generator, which was placed into the pocket.
The wound was irrigated thoroughly with antibiotic solution and closed in 3 layers using 2-0 V loc followed by 4-0 VLoc sutures. Steri-Strips and a bandage were applied externally.�
Extraction of Loop Recorder
The left parasternal chest area was prepped and draped in sterile fashion with chlorahexidine prep x 3 times. Lidocaine 1% was injected subcutaneously for local anesthesia. The loop recorder was palpated and the location was identified. An incision
was made at the previoous insertion location. The blunt dissection was done to identify the location of the ILR. The capsule was cut and the ILR was pulled out of the capsule. The dermis was closed with 4-0 Monocryl sutures and steristrips and a
pressure Tegaderm dressing was placed.
There were no immediate complications.
Procedure End:
The procedure was tolerated well.
Estimated Blood loss:
5 cc
Specimens Removed:
No cultures and no specimens were obtained. No intraoperative pathology was identified.
Fluoro time:
0.6 min /5.4mGy
Urine output:
None
Packs / Drains/ Tubes:
None
Instrument / Sponge Count Correct:
Yes
Complications of the Procedure:
None
Condition of Patient at Time of Transfer:
Hemodynamically stable with no neurological or vascular compromise.
Device information:�
Generator: [employer]; Model: W1DR01; Serial # [id number]�
Atrial Lead: Medtronic; Model: 5076-45; Serial # [id number]�
Measured data in the right atrium was sensing of 3.3 mV, impedance of 684 ohms and threshold of 0.5 V at 0.4ms�
RV Lead: [employer]tronic; Model: 5076-52; Serial # [id number]
Measured data in the RV lead was sensing of 13.4 mV, impedance of 1026 ohms and threshold of 1.0 V at 0.4ms�
Explanted device:
����������� Medtronic; Reveal LINQII; Model# [id number]; Serial# [id number].
����������� Implanted on 03/04/2023; explanted on 04/30/2024
Kade parameter settings were AAIR<=> DDDR 60-130 bpm. �
����������� Mode Switch: On
����������� Paced AV interval: 180ms
����������� Sensed AV interval: 150 ms.
����������� Rate Adaptive A-V Interval: ON
Output� parameters:
����������������������� Amplitude (V)������������� Pulse Width (ms)������� Sensitivity (mV)
����������� RA: ����� 3.5 ����������������� 0.4������������������ 0.3
����������� RV:������ 3.5������������������ 0.4������������������ 0.9
Summary:
Successful implantation of MRI compatible dual chamber pacemaker and removal of the previously implanted loop recorded.
Results/Recommendations:
-Please follow up CXR�
1. Please provide patient with adequate pain control�
Instructions to be given to patient:�
- Please follow up with [facility] at [address] [place] [address] ([phone]) to get your wound checked within 14 days of your discharge.
- Do not wet incision site until after it is evaluated at cardiology clinic. No showers until then. Sponge baths are OK.�
- Do not lift right elbow above shoulder, particularly with sudden jerking movements, for 1 month�
- Do not lift anything weighing more than 10 pounds with the right arm for 1 month�
- If you notice any fevers, shortness of breath, lightheadedness, chest pain, or worsening swelling in the wound site, please contact the arrhythmia clinic, contact your small electric engine technician, or present to the hospital for evaluation.�
Jose Ramon Chairez MD
Electrophysiology
--- NOTE | 2024-04-30 17:25 | PTCARENOTE ---
Patient admitted to IVU. AO x 3. Right chest wall Aquacel dressing dry, gauze and Tegaderm/gauze dressing to chest dry and intact. A-paced HR 62, BP 113/62. Precautions reviewed. Call leon in reach
[2024-04-30] MEDS: VASOTEC 5 MG PO (20:22)
--- NOTE | 2024-04-30 21:00 | PTCARENOTE ---
Received pt at shift change; AAOx3, able to make needs known, no complaints of pain currently. A-paced on the monitor. Aquacell present to R chest, C/D/I. RUE restrained in immobilizer, +radial pulse. Sterile 4x4 with tegaderm dressing to midchest,
C/D/I. Remainder of assessment as documented. Pt transported to xray for outstanding order, tolerated well. Pt resting comfortably in bed, updated on POC for the evening, call leon within reach.
[2024-04-30] MEDS: HYTRIN 1 MG PO (21:54)
[2024-04-30] MEDS: ANCEF 5 IV (21:54)
[2024-04-30] MEDS: PROTONIX 40 MG PO (21:55)
[2024-05-01 04:13] VITALS: BP 129/71
[2024-05-01] MEDS: TYLENOL 650 MG PO (04:32)
[2024-05-01 04:47] LABS: Hematocrit 41.5 % (39.0-52.0); Hemoglobin 13.6 g/dL (13.0-18.0); Mean Corp Hgb Conc. 32.8 g/dL (33.0-37.0); Mean Corpuscular Hgb 29.9 pg (27.0-31.0); Mean Corpuscular Volume 91.2 fL (80.0-94.0); Mean Platelet Volume 10.3 fL (7.4-10.4); Platelet Count 198 10^3/uL (130-400); Red Blood Cell Count 4.55 10^6/uL (4.70-6.10); Red Cell Dist. Width 12.6 % (11.5-14.5); White Blood Cell Count 8.3 10^3/uL (4.8-10.8)
[2024-05-01 05:09] LABS: Blood Urea Nitrogen 17 mg/dl (9-20); Calcium 9.3 mg/dl (8.4-10.2); Carbon Dioxide 30 mmol/L (22-30); Chloride 103 mmol/L (98-107); Estimated Creatinine Clearance 88 ml/min; Glucose 100 mg/dl (70-99); Potassium 4.9 mmol/L (3.5-5.1); Sodium 138 mmol/L (135-145); eGFR > 60.00
[2024-05-01] MEDS: ANCEF 5 IV (05:36)
[2024-05-01 06:51] VITALS: BP 119/70
--- NOTE | 2024-05-01 07:54 | W.PN.CD ---
Today's Communication / Plan
-
- Stable for discharge.
Impression / Plan
-
Syncope
- Intermittent complete heart block and long pauses
- Recurrent syncope.
- s/p PPM (Medtronic) right arm with ILR removal - 04/30/24
- Tele shows demand atrial pacing and rare V pacing.
- PPM site is normal healing. No fluctuation. No hematoma.
- CXR reviewed. no PTX
- echo 01/04/2024: normal LVEF, aortic sclerosis w/o stenosis.
Bifascicular block - chronic.
- s/p pacemaker as above.
HTN - stable on medical therapy, continue.
CAD - stable w/o angina.
- prior LAD PCI 2015.
- continue medical therapy.
CVA - noted on recent MRI.
- monitoring for Afib with ILR.
- plan as above.
- continue ASA, Crestor, Zetia.
Physical Exam
Vital Signs/Labs
Vital Signs
Temp Pulse Resp BP Pulse Ox
98.0 F 60 20 129/71 97
05/01/24 06:50 05/01/24 05:15 05/01/24 06:50 05/01/24 04:13 05/01/24 06:50
04/30/24 05/01/24 05/02/24
06:59 06:59 06:59
Actual Weight 123 kg
05/01/24 04:31
05/01/24 04:31
Physical Exam
Constitutional: No acute distress and Comfortable
EENT: Anicteric and Moist mucous membranes
Cardiovascular: Rhythm & rate is regular, Pedal edema is absent and JVD pressure is normal
Respiratory: Respiratory effort normal, Lungs clear to auscul. and Wheeze Absent
GI: Soft, Distention absent, Non tender and Normal bowel sounds
Neuro/Psych: Alert, Oriented and AO x 3
Other: Cardiac Device Site
Data Reviewed
-
Date of Service: May 01, 2024
Medical Decision Making: Reviewed Test Results, Test Interpretation and Review of Case with other Provider
EKG: Tracing Personally Visualized and interpreted
Echo: Report Reviewed by me
X-Ray/CT/US/MRI/NUC/PET: Image Personally Visualized and interpreted
Labs: Labs Reviewed by me
Old Records: Reviewed
[2024-05-01] MEDS: VASOTEC 5 MG PO (08:27)
[2024-05-01] MEDS: THERAGRAN 1 TABLET PO (08:27)
[2024-05-01] MEDS: ZETIA 10 MG PO (08:27)
[2024-05-01] MEDS: CRESTOR 5 MG PO (08:27)
[2024-05-01] MEDS: ASPIR LOW (ENTERIC COATED) 81 MG PO (08:27)
[2024-05-01] MEDS: FIBERCON 625 MG PO (08:37)
[2024-05-01] MEDS: COLACE 100 MG PO (08:37)
--- NOTE | 2024-05-01 08:43 | CM ---
Reviewed chart. Met with Mr. Lawson to review discharge plans. He states he resides with his spouse in a spilt level home with one step to enter. He states he has four steps to get to the first level and then four steps to get to the kitchen area
and nine steps to get to bedroom/full bathroom. He states he has a stair glide that he uses to get to bedroom/full bathroom. He states prior to admission he ambulates with a single point cane or a rolling walker. He states he can do his own adls.
He states he has a shower chair, rolling walker , single point cane and stair glide at home. He states his spouse has had [facility] in the past. He states he has a prescription plan and uses [facility]. Medical work-up in
progress. His sister will provide transportation home. The discharge plan is to return home with his spouse when medically stable.
--- NOTE | 2024-05-01 10:03 | PTCARENOTE ---
IV and tele removed. Discharge instructions reviewed w/ pt and family member. Verbalizes understanding. Belongings collected and sent home w/ pt. Escorted via WC and staff assist. D/c to home w/ family member.
--- NOTE | 2024-05-01 10:52 | W.DS.TRANS ---
DC Summary - Tester Armature Or Fields
-
Discharge Instructions:
Discharge Diagnosis/Procedures Complete heart block, syncope, s/p pacemaker
implant with loop device removal
Diet Low Cholesterol,Low Sodium
Activity No strenuous activity
Additional Activity See attached instructions
Driving Restrictions No driving for 1 week
Bathing Restrictions OK to Shower
Instructions:
Stand-Alone Forms: DC Inst - Implanted Device
Changes to Home Medications: No
Discharge Medications:
DC Medications w/original date entered in [facility]
aspirin 81 mg tablet,delayed release 81 mg PO DAILY Blood Clot Prevention/Tx 12/31/11
calcium polycarbophil 625 mg tablet (Fiber-Tabs) 625 mg PO SUTUTHSA 12/31/11
ezetimibe 10 mg tablet 10 mg PO DAILY High Cholesterol 12/31/11
terazosin 1 mg capsule 1 mg PO HS 12/31/11
rosuvastatin 5 mg tablet 5 mg PO DAILY High Cholesterol 09/05/22
tacrolimus 0.1 % topical ointment 1 applic topical DAILYPRN PRN rosacea of face 05/17/23
omeprazole 20 mg capsule,delayed release 20 mg PO DAILY Gastrointestinal Issue 01/17/24
acetaminophen 650 mg tablet,extended release 1,300 mg PO [id number] PRN mild pain 04/30/24
albuterol sulfate 90 mcg/actuation aerosol inhaler 2 puff inhalation R [id number] PRN sob/wheezing 04/30/24
calcium polycarbophil 625 mg tablet (Fiber-Tabs) 1,250 mg PO MOWEFR 04/30/24
clindamycin HCl 150 mg capsule 600 mg PO ONCE PRN Pre-dental work 04/30/24
docusate sodium 100 mg capsule 100 mg PO SUTUTHSA Constipation 04/30/24
enalapril maleate 5 mg tablet 5 mg PO BID Blood Pressure 04/30/24
therapeutic multivitamin 1 tab PO DAILY Supplement 04/30/24
Home Medication Changes
Pending Results: No
== END 2024-05-01 10:05 | disposition home or self-care (01) | DRG 244 ==
LOC: IVU 11:45
PROVIDERS: Internal Medicine Cardiovascular Disease; Nurse Practitioner; Physician Assistant Medical; ADMITTING PHYSICIAN Internal Medicine Cardiovascular Disease; EMERGENCY PHYSICIAN Emergency Medicine; FAMILY PHYSICIAN Emergency Medicine
PROC: 02HK3JZ Insertion of Pacemaker Lead into Right Ventricle, Percutaneous Approach (ICD-10-PCS; 2024-04-30)
PROC: 02H63JZ Insertion of Pacemaker Lead into Right Atrium, Percutaneous Approach (ICD-10-PCS; 2024-04-30)
PROC: 0JPT02Z Removal of Monitoring Device from Trunk Subcutaneous Tissue and Fascia, Open Approach (ICD-10-PCS; 2024-04-30)
PROC: 0JH606Z Insertion of Pacemaker, Dual Chamber into Chest Subcutaneous Tissue and Fascia, Open Approach (ICD-10-PCS; 2024-04-30)
DX: I44.2 Atrioventricular block, complete (principal); I45.2 Bifascicular block; I10 Essential (primary) hypertension; I25.10 Atherosclerotic heart disease of native coronary artery without angina pectoris; I70.0 Atherosclerosis of aorta; E78.00 Pure hypercholesterolemia, unspecified; G47.30 Sleep apnea, unspecified; E66.9 Obesity, unspecified; I49.3 Ventricular premature depolarization; Z96.653 Presence of artificial knee joint, bilateral; Z95.5 Presence of coronary angioplasty implant and graft; Z86.73 Personal history of transient ischemic attack (TIA), and cerebral infarction without residual deficits; Z91.040 Latex allergy status; Z88.0 Allergy status to penicillin; Z88.8 Allergy status to other drugs, medicaments and biological substances; Z91.018 Allergy to other foods; Z68.34 Body mass index [BMI] 34.0-34.9, adult; Z79.82 Long term (current) use of aspirin; Z79.621 Long term (current) use of calcineurin inhibitor
CPT/HCPCS: 33208; 33286; 71045; 80048; 80053; 85025; 85027; 93005; 99284; C1892

== ENCOUNTER → 2024-05-31 10:14 | Outpatient (REF) | payer MEDICARE, BC, SELFPAY | LOC: HWRAD 10:14 | PROVIDERS: ATTENDING PHYSICIAN Orthopaedic Surgery; FAMILY PHYSICIAN Emergency Medicine | DX: M70.22 Olecranon bursitis, left elbow (principal) | CPT/HCPCS: 73080 ==

== ENCOUNTER → 2024-06-20 13:32 | Outpatient (REF) | payer MEDICARE, BC, SELFPAY | LOC: HWRAD 13:32 | PROVIDERS: ATTENDING PHYSICIAN Otolaryngology; FAMILY PHYSICIAN Emergency Medicine | DX: E04.1 Nontoxic single thyroid nodule (principal) | CPT/HCPCS: 76536 ==

== ENCOUNTER 2024-08-03 10:05 | Emergency (ER) | payer MEDICARE, BC, SELFPAY ==
[2024-08-03 10:08] VITALS: BP 151/80
--- NOTE | 2024-08-03 11:38 | ED.GENMED ---
History of Present Illness
General
Chief Complaint: Throat Problem
Source: patient
Exam Limitations: none
Time Seen by Provider: 08/03/24 10:51
Nursing documentation reviewed up to this point in time: agreed with
History of Present Illness
History of Present Illness:
Patient is a 78-year-old male with past medical history of hypertension hyperlipidemia bundle branch block pacemaker cardiac stent, presents to the ER for evaluation. Patient was diagnosed with a thyroid cyst recently and has been followed by ENT.
He is scheduled for a drainage and aspiration in interventional radiology August 15 here at [place]. He presents to the ER because of difficulty breathing last night. He is able to swallow and tolerate secretions but feels a little difficulty
doing so. He currently denies any shortness of breath.
Ultrasound reads a 5.0 cm cyst within the left thyroid gland
Past History
Past History
ED Past Medical History: CAD, HTN, Hypercholesterolemia and Other (Sleep apnea)
ED Past Surgical History: Cardiac and Orthopedic
Social History
Tobacco: Non-smoker
Alcohol: None
Drug: None
Personal:
Living: with family
Review of Systems
Review of Systems
Allergies reviewed?: Yes
All Other Systems: ROS reviewed and negative except as documented in HPI and ROS
Constitutional: Reports no symptoms
Phy Exam
General Physical Exam
General Presentation: no apparent distress
General age: appears stated age
General Skin: warm and dry
General Habitus: normal
General Mental: alert
General Hydration: appears well hydrated
ENT Exam
ENT Exam: EOMI and pharynx normal
Neurological Exam
Neurological Exam: alert and oriented x3
Musculoskeletal Exam
Musculoskeletal Exam: full ROM
Skin Exam
Skin Exam: normal color and warm/dry
Psychiatric Exam
Psychiatric Exam: normal mood/affect
Course
Orders/Labs/Results
Orders:
Orders
08/03/24 11:41
CT Neck With Iv Contrast Urgent
Comment:
Reason For Exam: diff breathing (known thryoid cyst )
08/03/24 11:42
IV Insert/Care/Rem.- Treatment PRN
0.9% Sodium Chloride 500 ml [Nss] 500 ml IV BOLUS
08/03/24 11:52
Complete Blood Count/With Diff Urgent
Comprehensive Metabolic Panel Urgent
08/03/24 15:26
Dexamethasone Pf [Decadron] 10 mg PO NOW STA
Abnormal Lab Results
08/03/24
11:52
RBC 4.49 L 10^6/uL
(4.70-6.10)
MCHC 32.6 L g/dL
(33.0-37.0)
Lymphocytes % 18.7 L %
(20.5-51.1)
BUN 21 H mg/dl
(9-20)
Total Protein 6.2 L g/dl
(6.3-8.2)
08/03/24 11:52
08/03/24 11:52
Vital Signs
Initial and Last Documented VS:
Initial Vital Signs
Temp Pulse Resp BP Pulse Ox
97.7 F 80 16 151/80 98
08/03/24 10:08 08/03/24 10:08 08/03/24 10:08 08/03/24 10:08 08/03/24 10:08
Last Documented Vital Signs
Temp Pulse Resp BP Pulse Ox
97.7 F 80 16 151/80 98
08/03/24 10:08 08/03/24 10:08 08/03/24 10:08 08/03/24 10:08 08/03/24 11:41
MDM/Problems Addressed
Differential Diagnosis Includes:
Not limited to obstruction of airway, thyroid cyst, dysphagia
MDM/Problems Addressed:
78-year-old male with recent diagnosis of thyroid cyst presents to the ER with difficulty breathing. He felt difficulty last night and felt uncomfortable. He presents to the ER awake alert no acute distress no difficulty talking secretions lungs
are clear voice is clear. CAT scan done which shows a 4.3 cm large attenuation cyst in the thyroid gland the cyst abuts the trachea which is slightly deviated to the right without significant narrowing.
Patient well-appearing. Case discussed with ENT who does recommend steroids.
Patient has appointment for interventional radiology August 15. He was given the number he may call to see if there is a cancellation to get in next Tuesday since they only do thyroid procedures on Wednesdays. In the meantime a prescription for
steroids was sent to the pharmacy. He is to return if any worsening of symptoms.
*Radiology
Radiology exam reviewed: radiology read reviewed (Enlarged thyroid gland containing a large retention cyst measuring 4.3 cm that the cyst abuts the trachea which is slightly deviated to the right without significant narrowing)
*Pulse Oximetry
SaO2: 98
Oxygen Mode of Delivery: Room air
Patient hypoxic: no
*Critical Care Note
Total Time (30-74mins, 75-104mins- exclusive of procedures): Not Applicable
Patient Management
Discussion with other providers: Cdl Service Technician (DR Y[facility] )
ED Attending Note
-
Portions of this chart may have been created with voice recognition software.� Occasional wrong word or��sound alike� substitutions may have occurred due to the inherent limitations of voice recognition software.
Discharge Plan
Departure
Patient Disposition: Home (Routine Discharge)
Date of Disposition: 08/03/24
Time of Disposition: 15:29
Patient with high blood pressure during this ER visit?: Yes
Condition: Fair
Covid-19: Not Applicable
Discharge Problem:
Cyst of thyroid
Instructions: BLOOD PRESSURE
Prescriptions:
New
prednisone 20 mg tablet
40 mg PO DAILY Qty: 8 0RF
No Action
terazosin 1 MG capsule
1 mg PO HS
aspirin 81 MG tablet,delayed release (DR/EC)
81 mg PO DAILY
calcium polycarbophil [Fiber-Tabs] 625 MG tablet
625 mg PO SUTUTHSA
ezetimibe 10 MG tablet
10 mg PO DAILY
rosuvastatin 5 mg Tablet
5 mg PO DAILY
tacrolimus 0.1 % Ointment
1 applic TOPICAL DAILYPRN PRN (Reason: rosacea of face)
omeprazole 20 mg Capsule,Delayed Release(Dr/Ec)
20 mg PO DAILY
therapeutic multivitamin Tablet
1 tab PO DAILY
acetaminophen 650 mg Tablet Extended Release
1,300 mg PO [id number] PRN (Reason: mild pain)
calcium polycarbophil [Fiber-Tabs] 625 mg Tablet
1,250 mg PO MOWEFR
albuterol sulfate 90 mcg/actuation Hfa Aerosol Inhaler
2 puff INHALATION R Q6HPRN PRN (Reason: sob/wheezing)
docusate sodium 100 mg Capsule
100 mg PO SUTUTHSA
enalapril maleate 5 mg Tablet
5 mg PO BID
clindamycin HCl 150 mg Capsule
600 mg PO ONCE PRN (Reason: Pre-dental work)
Referrals:
Raya Hahn MD [Family Provider, Internal Medicine]
Konstantin Ndiaye MD [Active, Otology]
Activity Restrictions/Additional Instructions:
Start prednisone for next 4 days (starting tomorrow)
You may call interventional radiology: [phone] to see if they have a cancellation.
Return if any worsening of symptoms including difficulty breathing tolerating swallowing secretions or any further concerns.
Interventions
Interventions:
*General Assessment Last Done: 08/03/24 11:13
*ED- Fall Risk Assessment Last Done: 08/03/24 11:13
ED-EENT Assessment Last Done: 08/03/24 11:13
ED- Pulmonary Assessment Last Done: 08/03/24 11:13
Discharge Date and Time
Print Language: HAITIAN
[2024-08-03] MEDS: NSS 500 IV (11:53)
[2024-08-03 12:12] LABS: % Basophils 0.8 % (0-2); % Immature Granulocytes 0.3 % (0-0.5); % Lymphocytes 18.7 % (20.5-51.1); % Monocytes 6.6 % (1.7-9.3); % Neutrophils 72.6 % (42.2-75.2); Absolute Basophils 0.1 10^3/uL (0-0.2); Absolute Eosinophils 0.1 10^3/uL (0-0.7); Absolute Lymphocytes 1.3 10^3/uL (1.2-3.4); Absolute Monocytes 0.5 10^3/uL (0.1-0.6); Absolute Neutrophils 5.2 10^3/uL (1.4-6.5); Hematocrit 40.5 % (39.0-52.0); Hemoglobin 13.2 g/dL (13.0-18.0); Mean Corp Hgb Conc. 32.6 g/dL (33.0-37.0); Mean Corpuscular Hgb 29.4 pg (27.0-31.0); Mean Corpuscular Volume 90.2 fL (80.0-94.0); Mean Platelet Volume 10.1 fL (7.4-10.4); Nucleated Red Blood Cells % 0 % (-); Platelet Count 214 10^3/uL (130-400); Red Blood Cell Count 4.49 10^6/uL (4.70-6.10); Red Cell Dist. Width 13.2 % (11.5-14.5); White Blood Cell Count 7.2 10^3/uL (4.8-10.8)
[2024-08-03 12:43] LABS: ALT (SGPT) 20 U/L (0-50); AST (SGOT) 19 U/L (17-59); Albumin 4.1 g/dl (3.5-5.0); Alkaline Phosphatase 47 U/L (38-126); Blood Urea Nitrogen 21 mg/dl (9-20); Calcium 9.3 mg/dl (8.4-10.2); Carbon Dioxide 26 mmol/L (22-30); Chloride 105 mmol/L (98-107); Glucose 94 mg/dl (70-99); Potassium 4.7 mmol/L (3.5-5.1); Sodium 135 mmol/L (135-145); Total Bilirubin 0.6 mg/dl (0.2-1.3); Total Protein 6.2 g/dl (6.3-8.2); eGFR > 60.00
[2024-08-03] MEDS: DECADRON 10 MG PO (15:39)
[2024-08-03 15:46] VITALS: BP 150/70
== END 2024-08-03 16:32 | disposition home or self-care (01) ==
LOC: EMR 10:05
PROVIDERS: Nurse Practitioner; EMERGENCY PHYSICIAN Emergency Medicine; FAMILY PHYSICIAN Emergency Medicine
DX: E04.1 Nontoxic single thyroid nodule (principal); E78.00 Pure hypercholesterolemia, unspecified; I25.10 Atherosclerotic heart disease of native coronary artery without angina pectoris; I10 Essential (primary) hypertension; G47.30 Sleep apnea, unspecified
CPT/HCPCS: 96360; 99284; 70491; 80053; 85025; Q9967

== ENCOUNTER → 2024-08-15 12:15 | Outpatient (REF) | payer MEDICARE, BC, SELFPAY ==
[2024-08-15 12:39] VITALS: BP 160/91; BP_SYST 71
[2024-08-15 14:02] VITALS: BP 155/78; BP_SYST 68
== END ==
LOC: RADI 12:15
PROVIDERS: ATTENDING PHYSICIAN Surgery
DX: E04.1 Nontoxic single thyroid nodule (principal)
CPT/HCPCS: 10005; 88173

== ENCOUNTER → 2024-09-07 09:50 | Outpatient (REF) | payer MEDICARE, BC, SELFPAY ==
[2024-09-07 13:17] LABS: Glycohemoglobin (HgbA1c) 6.0 % (4.0-5.6)
[2024-09-07 13:32] LABS: ALT (SGPT) 19 U/L (0-50); AST (SGOT) 21 U/L (17-59); Albumin 4.2 g/dl (3.5-5.0); Alkaline Phosphatase 48 U/L (38-126); Blood Urea Nitrogen 17 mg/dl (9-20); Calcium 10.0 mg/dl (8.4-10.2); Carbon Dioxide 29 mmol/L (22-30); Chloride 104 mmol/L (98-107); Glucose 101 mg/dl (70-99); HDL Cholesterol 38 mg/dl; LDL Cholesterol, Calculated 79 mg/dl; Potassium 4.5 mmol/L (3.5-5.1); Sodium 138 mmol/L (135-145); Total Protein 6.5 g/dl (6.3-8.2); Very Low Density Lipoprotein 22 mg/dl (0-30); eGFR > 60.00
== END ==
LOC: HWLAB 09:50
PROVIDERS: ATTENDING PHYSICIAN Emergency Medicine
DX: E78.2 Mixed hyperlipidemia (principal); R73.03 Prediabetes
CPT/HCPCS: 36415; 80053; 80061; 83036

== ENCOUNTER → 2024-10-10 11:17 | Outpatient (REF) | payer MEDICARE, BC, SELFPAY ==
[2024-10-10 17:06] LABS: ALT (SGPT) 21 U/L (0-50); AST (SGOT) 26 U/L (17-59); Albumin 4.1 g/dl (3.5-5.0); Alkaline Phosphatase 49 U/L (38-126); Blood Urea Nitrogen 17 mg/dl (9-20); Calcium 9.0 mg/dl (8.4-10.2); Carbon Dioxide 30 mmol/L (22-30); Chloride 107 mmol/L (98-107); Glucose 97 mg/dl (70-99); Potassium 4.7 mmol/L (3.5-5.1); Sodium 140 mmol/L (135-145); Total Protein 6.2 g/dl (6.3-8.2); eGFR > 60.00
[2024-10-10 17:11] LABS: C-Reactive Protein < 5.00 mg/L (0.0-10.00)
[2024-10-10 18:02] LABS: Vitamin B12 520 pg/ml (239-931)
[2024-10-11 09:07] LABS: Glycohemoglobin (HgbA1c) 6.0 % (4.0-5.6)
[2024-10-13 08:57] LABS: ANA, IgG Reflex to HEp-2 Detected (None Detected)
== END ==
LOC: HWLAB 11:17
PROVIDERS: ATTENDING PHYSICIAN Psychiatry & Neurology Neurology; FAMILY PHYSICIAN Emergency Medicine
DX: G62.9 Polyneuropathy, unspecified (principal); G62.89 Other specified polyneuropathies; R73.03 Prediabetes; I25.10 Atherosclerotic heart disease of native coronary artery without angina pectoris
CPT/HCPCS: 36415; 80053; 82607; 82784; 83036; 83521; 83921; 84155; 84165; 84443; 85652; 86038; 86140; 86334

== ENCOUNTER 2024-10-23 16:27 | Emergency (ER) | payer MEDICARE, BC, SELFPAY ==
[2024-10-23 16:32] VITALS: BP 130/78
--- NOTE | 2024-10-23 18:44 | ED.GENMED ---
History of Present Illness
General
Chief Complaint: Back Pain
Source: patient
Exam Limitations: none
Time Seen by Provider: 10/23/24 18:06
Nursing documentation reviewed up to this point in time: agreed with
History of Present Illness
History of Present Illness:
78-year-old male who presents with a severe 'left hip' pain that began after lifting a 65-pound wheelchair for his last . He describes the pain as progressively worsening, with the most severe pain occurring today, to the point where
he cannot walk to the bathroom. When laying still, the pain is a zero on a scale of 0 to 10, but it increases to 10/10 with certain movements.
He has history of stenosis in his spine, and pain sometimes radiates to the left hip but states the current pain feels different and more severe. He did have epidural in L spine 6 days ago.
Denies fever/chills. Denies radiation of pain. Denies weakness in legs.
Past History
Past History
ED Past Medical History: CAD, HTN, Hypercholesterolemia and Other (Sleep apnea)
ED Past Surgical History: Cardiac (Pacemaker, cardiac stent 2016) and Orthopedic
Social History
Tobacco: Non-smoker
Alcohol: None
Drug: None
Personal:
Living: with family
Review of Systems
Review of Systems
Allergies reviewed?: Yes
All Other Systems: ROS reviewed and negative except as documented in HPI and ROS
Phy Exam
Physical Exam
Physical Exam:
GENERAL: No acute distress. A&Ox3. Morbidly obese
CONSTITUTIONAL: Afebrile.
EYES: clear, conjunctivae normal
ENMT: moist mucus membranes, Pharynx nl
RESPIRATORY: Regular respirations, nonlabored, lungs clear.
CARDIOVASCULAR: Regular rate and rhythm, no murmurs, no rubs.
GI: Soft, nontender, normal BS
MUSCULOSKELETAL: Unable to locate exact area of pain. Patient points to his left mid ischial area to identify where his pain is. Very deep palpation of the entire lower spine, buttock, hip area elicits no pain at times and then at other times
different areas with deep palpation elicits pain. With left knee flexed, adduction of the leg elicits no pain well perfused. Abduction of the leg with knee flexed elicited significant pain once and he screamed out but then on subsequent similar
maneuvers he had no pain. Negative straight leg raise. Distal neurovascular intact.
SKIN: Warm, dry, pink
PSYCH: Normal mood and affect. Well kept, interactive and appropriate
NEUROLOGIC: Awake, alert and oriented. No focal neurological deficits. Strength 5/5 bilateral lower extremities.
Course
Orders/Labs/Results
Orders:
Orders
10/23/24 18:42
Cyclobenzaprine HCl [Flexeril] 10 mg PO NOW STA
Dexamethasone [Decadron] 10 mg PO NOW STA
Ketorolac [Toradol] 30 mg IM NOW STA
10/23/24 18:43
Hip, Left 2-3 Views [CR Hip - LT w/wo Pel 2-3 Vw*] Urgent
Comment:
Reason For Exam: pain after lifting
Include a pelvis x-ray?: Yes
Vital Signs
Initial and Last Documented VS:
Initial Vital Signs
Temp Pulse Resp BP Pulse Ox
98 F 75 16 130/78 97
10/23/24 16:32 10/23/24 16:32 10/23/24 16:32 10/23/24 16:32 10/23/24 16:32
Last Documented Vital Signs
Temp Pulse Resp BP Pulse Ox
98 F 75 16 130/78 97
10/23/24 16:32 10/23/24 16:32 10/23/24 16:32 10/23/24 16:32 10/23/24 18:46
MDM/Problems Addressed
Differential Diagnosis Includes:
Muscle strain/sprain, hip bursitis, lumbar radiculopathy, osteoarthritis, trochanteric bursitis.
MDM/Problems Addressed:
The yeah no so we do not want her chest x-ray was not done as patient so sorry yeah in the one-liner so that he can forwarded onto the to me anyway dom fernandes 78-year-old male who presents with a severe 'left hip' pain that began after lifting a
65-pound wheelchair for his last . He describes the pain as progressively worsening, with the most severe pain occurring today, to the point where he cannot walk to the bathroom. When laying still, the pain is a zero on a scale of 0 to
10, but it increases to 10/10 with certain movements.
He has history of stenosis in his spine, and pain sometimes radiates to the left hip but states the current pain feels different and more severe. He did have epidural in L spine 6 days ago.
Denies fever/chills. Denies radiation of pain. Denies weakness in legs.
No infectious signs
With the history of lifting and pain starting that same evening, with pain in various areas at various times, consistent with soft tissue, most likely muscular back pain.
Plan: Short burst of steroids, IM injection of Toradol here now, Flexeril.
Although patient is over 65 and Flexeril is not recommended, he states he has had it before and it has worked well for him. He understands the increasing risk of sedation and falling.
8:30 PM:
after medications, patient is sitting on the side of the bed, he is able to independently bend his knees up to put his shoes on and stand to pull his pants up and ambulating with walker
Prescription for Flexeril sent to his pharmacy
Patient states he can follow-up with his orthopedic doctor, Dr. Giles .
*Pulse Oximetry
SaO2: 97
Oxygen Mode of Delivery: Room air
Patient hypoxic: not evaluated
*Critical Care Note
Total Time (30-74mins, 75-104mins- exclusive of procedures): Not Applicable
ED Attending Note
-
Portions of this chart may have been created with voice recognition software.� Occasional wrong word or��sound alike� substitutions may have occurred due to the inherent limitations of voice recognition software.
Discharge Plan
Departure
Patient Disposition: Home (Routine Discharge)
Date of Disposition: 10/23/24
Time of Disposition: 19:30
Patient with high blood pressure during this ER visit?: No
Condition: Fair
Discharge Problem:
Low back strain
Instructions: Muscle strain, Low Back Pain (DC)
Prescriptions:
New
cyclobenzaprine 10 mg tablet
10 mg PO BID Qty: 20 0RF
No Action
terazosin 1 MG capsule
1 mg PO HS
aspirin 81 MG tablet,delayed release (DR/EC)
81 mg PO DAILY
calcium polycarbophil [Fiber-Tabs] 625 MG tablet
625 mg PO SUTUTHSA
ezetimibe 10 MG tablet
10 mg PO DAILY
rosuvastatin 5 mg Tablet
5 mg PO DAILY
tacrolimus 0.1 % Ointment
1 applic TOPICAL DAILYPRN PRN (Reason: rosacea of face)
omeprazole 20 mg Capsule,Delayed Release(Dr/Ec)
20 mg PO DAILY
therapeutic multivitamin Tablet
1 tab PO DAILY
acetaminophen 650 mg Tablet Extended Release
1,300 mg PO [id number] PRN (Reason: mild pain)
calcium polycarbophil [Fiber-Tabs] 625 mg Tablet
1,250 mg PO MOWEFR
albuterol sulfate 90 mcg/actuation Hfa Aerosol Inhaler
2 puff INHALATION R Q6HPRN PRN (Reason: sob/wheezing)
docusate sodium 100 mg Capsule
100 mg PO SUTUTHSA
enalapril maleate 5 mg Tablet
5 mg PO BID
clindamycin HCl 150 mg Capsule
600 mg PO ONCE PRN (Reason: Pre-dental work)
prednisone 20 mg tablet
40 mg PO DAILY Qty: 8 0RF
Referrals:
Raya Hahn MD [Family Provider, Internal Medicine] - Call in 1-3 days for appt
Activity Restrictions/Additional Instructions:
As we discussed, I sent a prescription for Flexeril to your pharmacy. Flexeril can make you sleepy and slow the reflexes so do not drive or operate any machinery within 8 hours of taking it. You may want to save it for bedtime.
You were given a dose of steroid, Decadron here today. This is a long-acting steroid and should last for about 3 days. It may not kick in until tomorrow however.
You are also given a dose of Toradol here that is a nonsteroid oral anti-inflammatory analgesic which may help with the pain.
You may take ibuprofen 600 mg once a day as needed for pain but for only 1 week
And take Tylenol 1000 mg up to 3 times a day as needed for pain.
Follow up with your primary doctor or Orthopedic Dr. Giles in 5-7 days if not at least starting to improve by then.
Interventions
Interventions:
*Risk Screen - Suicide Last Done: 10/23/24 16:34
*Neglect/Abuse Screening Last Done: 10/23/24 16:34
*Nursing Disposition Last Done: 10/23/24 19:40
ED-Musculoskeletal Assessment Last Done: 10/23/24 18:36
Discharge Date and Time
Discharge Date/Time: 10/23/24 19:46
Print Language: LATVIAN
[2024-10-23] MEDS: TORADOL 30 MG IM (18:51)
[2024-10-23] MEDS: DECADRON 10 MG PO (18:51)
[2024-10-23] MEDS: FLEXERIL 10 MG PO (18:51)
== END 2024-10-23 19:46 | disposition home or self-care (01) ==
LOC: EMR 16:27
PROVIDERS: EMERGENCY PHYSICIAN Emergency Medicine; FAMILY PHYSICIAN Emergency Medicine
DX: S39.012A Strain of muscle, fascia and tendon of lower back, initial encounter (principal); X50.0XXA Overexertion from strenuous movement or load, initial encounter; I25.10 Atherosclerotic heart disease of native coronary artery without angina pectoris; I10 Essential (primary) hypertension; E78.00 Pure hypercholesterolemia, unspecified; G47.30 Sleep apnea, unspecified; E66.01 Morbid (severe) obesity due to excess calories; M48.00 Spinal stenosis, site unspecified; Z79.82 Long term (current) use of aspirin; Z95.0 Presence of cardiac pacemaker; Z95.5 Presence of coronary angioplasty implant and graft
CPT/HCPCS: 99284; 96372; 73502

== ENCOUNTER → 2025-01-10 10:50 | Outpatient (REF) | payer MEDICARE, BC, SELFPAY ==
[2025-01-10 12:04] LABS: Hematocrit 41.5 % (39.0-52.0); Hemoglobin 13.5 g/dL (13.0-18.0); Mean Corp Hgb Conc. 32.5 g/dL (33.0-37.0); Mean Corpuscular Volume 90.4 fL (80.0-94.0); Nucleated Red Blood Cells % 0 % (-); Platelet Count 249 10^3/uL (130-400); Red Cell Dist. Width 12.5 % (11.5-14.5)
[2025-01-10 13:09] LABS: ALT (SGPT) 21 U/L (0-50); AST (SGOT) 22 U/L (17-59); Albumin 4.2 g/dl (3.5-5.0); Alkaline Phosphatase 50 U/L (38-126); Blood Urea Nitrogen 19 mg/dl (9-20); Calcium 9.3 mg/dl (8.4-10.2); Carbon Dioxide 28 mmol/L (22-30); Chloride 104 mmol/L (98-107); Glucose 106 mg/dl (70-99); HDL Cholesterol 38 mg/dl; LDL Cholesterol, Calculated 61 mg/dl; Potassium 4.7 mmol/L (3.5-5.1); Sodium 136 mmol/L (135-145); Total Protein 6.6 g/dl (6.3-8.2); Very Low Density Lipoprotein 25 mg/dl (0-30); eGFR > 60.00
[2025-01-10 14:07] LABS: Glycohemoglobin (HgbA1c) 5.9 % (4.0-5.9)
[2025-01-12 07:28] LABS: ANA, IgG Reflex to HEp-2 Detected (None Detected)
== END ==
LOC: REG 10:50
PROVIDERS: ATTENDING PHYSICIAN Psychiatry & Neurology Neurology; FAMILY PHYSICIAN Family Medicine
DX: R76.81 Abnormal rheumatoid factor and anti-citrullinated protein antibody without rheumatoid arthritis (principal); R77.8 Other specified abnormalities of plasma proteins; Z79.899 Other long term (current) drug therapy; I10 Essential (primary) hypertension; E78.2 Mixed hyperlipidemia; R73.03 Prediabetes
CPT/HCPCS: 36415; 80053; 80061; 83036; 84443; 85025; 86038